=== PATIENT | female | born 1995 | race African-American/Black ===

== ENCOUNTER 2022-04-20 16:00 | Emergency (ER) | payer OTHER ==
--- OUTSIDE RECORDS SUMMARY | 2022-04-20 16:44 | XMS REPORT | Continuity of Care Document ---
:1995 Author Organization [facility] t Address [address] [place] [address] Care Team Providers Name Role Phone ARCELIA Attending Clinician Unavailable Frantz Hardy Attending Clinician [phone] LORELEI ALFORD Attending Clinician Unavailable ARCELIA Admitting Clinician Unavailable Payers Payer Name Policy Type Policy Number Effective Date Expiration Date S ource [facility] [id number] 2019 2021 00[place]00[place]00 [place] 00[place]00 [facility] - [id number] 2020 OUT OF STATE 00:00:00 Problems Condition Condition Condition Status Onset Resolution Last Treating Co mments Source Name Details Category Date Date Treatment Clinician Date Acne Acne Problem Active [place] 06-20 [facility] 00:00: [facility] Allergies, Adverse Reactions, Alerts Allergy Allergy Status Severity Reaction(s) Onset Inactive Treating Comm ents Source Name Type Date Date Clinician NO KNOWN Drug Active [facility] ALLERGIE Class ity of [facility] Social History Smoking Status Start Date Stop Date Source Never Smoker [facility] Medications Ordered Filled Start Stop Current Ordering Indication Dosage Frequency Signature Comments Components Source Medication Medication Date Date Medication? Clinician (SIG) Name Name Aczone 7.5 Aczone 7.5 No Aczone 7.5 [place] % topical % topical % topical Communi gel with gel with gel with ty pump [facility] ondansetron ondansetron No ondansetro [place] HCl 4 mg HCl 4 mg n HCl 4 mg C ommuni tablet 1-2 tablet 1-2 tablet 1-2 ty tablets by tablets by tablets by [facility] mouth every mouth every mouth l 8 hours as 8 hours as every 8 Clinics needed for needed for hours as nausea/vomi nausea/vomi needed for ting ting nausea/vom iting spironolact spironolact No spironolac [place] one 100 mg one 100 mg tone 100 Communi tablet 1 PO tablet 1 PO mg tablet ty qd qd 1 PO qd [facility] Aczone 7.5 Aczone 7.5 No Aczone 7.5 [place] % topical % topical % topical Communi gel with gel with gel with ty pump pump pump [facility] butalbital- butalbital- No 1 Q8H butalbital [place] acetaminoph acetaminoph -acetamino Communi en-caffeine en-caffeine phen-caffe ty 50 mg-325 50 mg-325 ine 50 [facility] mg-40 mg mg-40 mg mg-325 l tablet Take tablet Take mg-40 mg Clinics 1 tablet 1 tablet tablet every 8 every 8 Take 1 hours by hours by tablet oral route. oral route. every 8 hours by oral route. diphenoxyla diphenoxyla No diphenoxyl [place] te-atropine te-atropine ate-atropi Communi 2.5 2.5 ne 2.5 ty mg-0.025 mg mg-0.025 mg [facility] or tablet 1 or mg tablet l 2 tabs 2 tabs 1 or 2 Clinics every 6 every 6 tabs every hours as hours as 6 hours as needed for needed for needed for diarrhea diarrhea diarrhea Nicaprin Nicaprin No 1 BID Nicaprin Swe krysta 250 mg-500 250 mg-500 250 mg-500 Communi mcg-4.5 mcg-4.5 mcg-4.5 ty mg-1.4 mg mg-1.4 mg mg-1.4 mg [facility] tablet Take tablet Take tablet l 1 tablet 1 tablet Take 1 Clini cs twice a day twice a day tablet by oral by oral twice a route. route. day by oral route. Vital Signs Vital Name Observation Time Observation Value Comments Source BP Diastolic 2021-01-09 00:00:00 74 mm[Hg] [facility] s Height 2021-01-09 00:00:00 59 [in_i] [facility] s BMI (Body Mass 2021-01-09 00:00:00 26.5 kg/m2 [facility] s BP Systolic 2021-01-09 00:00:00 118 mm[Hg] [facility] s Body Weight 2021-01-09 00:00:00 2096 [oz_av] [facility] s BP Diastolic 2020-06-25 00:00:00 80 mm[Hg] [facility] s Height 2020-06-25 00:00:00 59 [in_i] [facility] s BMI (Body Mass 2020-06-25 00:00:00 26.9 kg/m2 [facility] s BP Systolic 2020-06-25 00:00:00 120 mm[Hg] [facility] s Body Weight 2020-06-25 00:00:00 2128 [oz_av] [facility] s BP Diastolic 2020-06-20 00:00:00 72 mm[Hg] [facility] s Height 2020-06-20 00:00:00 59 [in_i] [facility] s BMI (Body Mass 2020-06-20 00:00:00 26.9 kg/m2 [facility] s BP Systolic 2020-06-20 00:00:00 102 mm[Hg] [facility] s Body Weight 2020-06-20 00:00:00 2128 [oz_av] [facility] s Procedures Procedure Date / Time Performed Performing Clinician Sourc e XR, abdomen 2020-06-20 00:00:00 [facility] Extraction of [place] [facility] Plan of Care Planned Activity Planned Date Details Comments Source Diagnostic Test 2020-06-20 rapid SARS CoV 2 [facility]00 QL [place], respiratory Hospital Clinics specimen [code = rapid SARS CoV 2 Ag, QL [place], respiratory specimen] Diagnostic Test 2020-06-20 rapid flu (A+B) [facility] = rapid flu (A+B)] Hospital Clinics Diagnostic Test 2020-06-20 CMP, serum or plasma [facility] Pending 00:00:00 [code = CMP, serum or Hospit [facility] plasma] Diagnostic Test 2020-06-20 CBC w/ auto diff [facility] ommunity Pending 00:00:00 [code = CBC w/ auto Hospital Clinics diff] Diagnostic Test 2020-06-20 urinalysis, dipstick [facility] Pending 00:00:00 [code = urinalysis, [facility] Clinics dipstick] Encounters Start End Encounter Admission Attending Care Care Encounter Source Date/Time Date/Time Type Type Clinicians Facility Department ID 2021-01-09 2021-01-09 Outpatient ARCELIA [facility] 1005 [place] 06:14:00 06:14:00 [id number] [facility] 2021-01-09 2021-01-09 Outpatient Sammie [facility] [id number] 00:00:00 00:00:00 [id number] [place] [id number] 2021-01-09 2021-01-09 Frantz [facility] [place] 00:[place]:00 00:00:00 [facility] DO: [address] [facility] Hospit a [place], [facility] [address], HOSPITAL Clinic s [place], [place] CL[place], [address] SAMMIE , Ph. [phone] 2020-11-11 2020-11-11 Outpatient Azar ALFORD [facility] [id number] Univers 16:10:00 16:10:[address] [facility] 2020-10-21 2020-10-21 Outpatient [facility] [id number] [facility] 16:20:00 16:20:00 [facility] 2020-09-19 2020-09-19 Outpatient [facility] [id number] [facility] 16:10:00 16:10:00 [facility] 2020-09-03 2020-09-03 Outpatient ERICKSON_R [facility] 1005 [place] 03:58:00 03:58:00 [id number] Commun i ty Hospita [facility] Clinics 2020-07-01 2020-07-01 Outpatient ERICKSON_R [facility] 1005 [place] 11:44:00 11:44:00 0201 Commun i ty Hospita [facility] Clinics 2020-06-25 2020-06-25 Outpatient ERICKSON_R [facility] 1005 [place] 05:47:00 05:47:00 0126 Commun i ty Hospita l Clinics 2020-06-25 2020-06-25 Outpatient Hardy, [facility] [id number] 00:00:00 00:00:00 Frantz [id number] Abdulaziz [id number] 2020-06-25 2020-06-25 Frantz [facility] [place] 00:00:00 00:00:00 [facility] - ty DO: [address] a [facility] [address], HOSPITAL Clinic s [place], [facility], [address] SAMMIE , Ph. 2020-06-24 2020-06-24 Outpatient ERICKSON_R [facility] 1005 [place] 05:16:00 05:16:00 012 Commun i ty Hospita l Clinics 2020-06-20 2020-06-20 Outpatient ERICKSON_R [facility] 1005 [place] 05:57:00 05:57:00 012 Commun i ty Hospita l Clinics 2020-06-20 2020-06-20 Outpatient Hardy, [facility] [id number] 00:00:00 00:00:00 Frantz [id number] Abdulaziz [id number] 2020-06-20 2020-06-20 Frantz [facility] [place] 00:00:00 00:00:00 [facility] - ty DO: [address] [facility] [address], H[place]PITAL [place], [address] SAMMIE , Ph. Results Test Description Test Time Test Comments Results Result Comments Source Urinalysis macro (dipstick) panel - Urine 2020-06-20 15:47:0 0 Test Item Value Reference Range Interpretation Comme nts Leukocytes (test code = Leukocytes) Negative Nitrite (test code = Nitrite) negative Urobilinogen (test code = Urobilinogen) .2 Protein (test code = Protein) 30 pH (test code = pH) 8.0 Blood (test code = Blood) Negative Specific Seminole (test code = Specific Seminole) 1.005 Ketone (test code = Ketone) Large (160) Bilirubin (test code = Bilirubin) Small Glucose (test code = Glucose) Negative Appearance (test code = Appearance) Clear Color (test code = Color) Pale Yellow [facility] panel - Urine 2020-06-20 15:47:00 Test Item Value Reference Range Interpretation Comments Leukocytes (test code = Negative Leukocytes) Nitrite (test code = Nitrite) negative Urobilinogen (test code = .2 Urobilinogen) Protein (test code = Protein) 30 pH (test code = pH) 8.0 Blood (test code = Blood) Negative Specific Seminole (test code = 1.005 Specific [place]in[place]) Ketone (test code = Ketone) Large (160) Bilirubin (test code = Bilirubin) Small Glucose (test code = Glucose) Negative Appearance (test code = Clear Appearance) Color (test code = Color) Pale Yellow [facility] flu (A+B)2020-06-20 15:46:00 Test Item Value Reference Range Interpretation Comments FLU A (test code = FLU A) negative FLU B (test code = FLU B) negative [facility] flu (A+B)2020-06-20 15:46:00 Test Item Value Reference Range Interpretation Comments FLU A (test code = FLU A) negative FLU B (test code = FLU B) negative [facility] Ag [Presence] in Respiratory specimen by Rapid [id number] 15:02:00 Test Item Value Reference Range Interpretation Comments SARS CoV 2 (test code = SARS CoV 2) negative [facility] Ag [Presence] in Respiratory specimen by Rapid [id number] 15:02:00 Test Item Value Reference Range Interpretation Comments SARS CoV 2 (test code = SARS CoV 2) negative [facility]
--- NOTE | 2022-04-20 18:13 | RAD REPORT ---
EXAM DESCRIPTION: RAD - Shoulder Right 2 View - 04/20/2022 5:55 pm CLINICAL HISTORY: PAIN COMPARISON: No comparisons FINDINGS: Mild AC joint degenerative changes are present. No fracture, dislocation aggressive marrow lesion.
[2022-04-20] MEDS ORDERED: KETOROLAC 30 MG/ML INJ ONE (18:45)
--- NOTE | 2022-04-20 19:31 | EDPHYS ---
Physician Documentation [facility] Name: Yaz Deleon Age: 27 yrs Sex: Female : 1995 Arrival Date: 04/20/2022 Time: 16:05 Bed 10 Private MD: ED Physician Jey Polanco HPI: 04/20 17:04 This 27 yrs old Black Female presents to ER via Ambulatory with complaints of Shoulder [facility] Pain. 17:04 The patient or guardian complains of pain. Onset: The symptoms/episode began/occurred jm gradually, 1 day(s) ago. Patient complains of right shoulder pain after stretching. Denies any other injury. Denies any previous injury of the right shoulder . 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 - Social history:: Smoking status: Patient denies any tobacco usage or history of. Vital Signs: 16:48 BP 136 / 83; Pulse 66; Resp 16; Temp 97.6; Pulse Ox 100% ; Weight 61.69 kg; Height 4 iw ft. 11 in. (149.86 cm); Pain 4/10; 19:47 BP 128 / 78; Pulse 60; Resp 18; Pulse Ox 99% ; kb3 16:48 Body Mass Index 27.47 (61.69 kg, 149.86 cm) iw MDM: 17:07 Patient medically screened. [facility] 19:01 Data reviewed: vital signs, nurses notes. Counseling: I had a detailed discussion with [facility] the patient and/or guardian regarding: the historical points, exam findings, and any diagnostic results supporting the discharge/admit diagnosis, the need for outpatient follow up, to return to the emergency department if symptoms worsen or persist or if there are any questions or concerns that arise at home. 04/20 17:03 Order name: Shoulder Right (2 View) XRAY; Complete Time: 18:17 [facility] 04/20 17:12 Order name: Urine Test (obtain specimen); Complete Time: 19:51 [facility] 04/20 18:35 Order name: Sling; Complete Time: 18:54 [facility] Administered Medications: 18:54 Drug: Ketorolac 30 mg Route: IM; Site: left ventrogluteal; kb3 19:47 Follow up: Response: No adverse reaction; Pain is decreased kb3 Disposition: 04/21 07:30 Co-signature as Attending Physician, Jey Polanco MD I agree with the assessment and rt plan of care. Disposition Summary: 04/20/22 19:29 Discharge Ordered Location: Home [facility] Condition: Stable [facility] Diagnosis - Sprain of shoulder joint [facility] Followup: jmm - With: Private Physician - When: As needed - Reason: Recheck today's complaints, Continuance of care, Re-evaluation by your physician Followup: [facility] - With: Jhonny Woods MD - When: 2 - 3 days - Reason: Recheck today's complaints, Continuance of care, Re-evaluation by your physician Discharge Instructions: - Discharge Summary Sheet [facility] - Shoulder Sprain [facility] Forms: - Medication Reconciliation Form [facility] - Thank You Letter [facility] - Antibiotic Education [facility] - Prescription Opioid Use [facility] Prescriptions: - Prednisone 20 mg Oral Tablet - take 3 tablets by ORAL route once daily for 5 days; 15 tablet; Refills: 0, [facility] Product Selection Permitted - orphenadrine citrate 100 mg Oral Tablet Sustained Release - take 1 tablet by ORAL route 2 times per day As needed; 20 tablet; Refills: 0, [facility] Product Selection Permitted Signatures: Dispatcher [employer] EDBryan Ha PA PA jm Elizabeth Hill, Mamie Almanza RN, RN RN kb3 Jey Polanco MD MD rt
--- NOTE | 2022-04-20 19:31 | ER ---
Nurse's Notes [facility] [place] Name: Yaz Deleon Age: 27 yrs Sex: Female : 1995 Arrival Date: 04/20/2022 Time: 16:05 Bed 10 Private MD: Diagnosis: Sprain of shoulder joint Presentation: 04/20 16:48 Chief complaint: Patient states: right shoulder; on Wednesday i believe i stretched iw wrong and its gotten progressively worse and when i lift now i can hear a grinding noise and it's hard to rotate it anyway like to put on my jacket and reach behind.. I have been using muscle rub and ibuprofen but it's not working. Coronavirus screen: Vaccine status: Patient reports receiving the 2nd dose of the covid vaccine. Client denies travel out of the [place] in the last 14 days. Ebola Screen: Patient negative for fever greater than or equal to 101.5 degrees Fahrenheit, and additional compatible Ebola Virus Disease symptoms Patient denies exposure to infectious person. Patient denies travel to an Ebola-affected area in the 21 days before illness onset. Initial Sepsis Screen: Does the patient meet any 2 criteria? No. Patient's initial sepsis screen is negative. Does the patient have a suspected source of infection? No. Patient's initial sepsis screen is negative. Risk Assessment: Do you want to hurt yourself or someone else? Patient reports no desire to harm self or others. 16:48 Method Of Arrival: Ambulatory iw 16:48 Acuity: ALICIA 4 iw 19:49 Onset of symptoms was April 15, 2022. kb3 Triage Assessment: 16:51 General: Appears in no apparent distress. uncomfortable, slender, well groomed, well iw developed, well nourished, Behavior is calm, cooperative, appropriate for age. Pain: Complains of pain in right shoulder. 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 - Social history:: Smoking status: Patient denies any tobacco usage or history of. Screenin:30 Abuse screen: Denies threats or abuse. Denies injuries from another. Nutritional kb3 screening: No deficits noted. Tuberculosis screening: No symptoms or risk factors identified. Fall Risk None identified. Assessment: 17:30 General: Appears in no apparent distress. Behavior is calm, cooperative, Received care kb3 of pt from [facility] without distress. Pt reports she reached above her head on Wed while at work and felt a pop and now has pain in her right shoulder and right trapezius. Denies numbness, tingling to right upper extremity. Pain: Complains of pain in anterior aspect of right shoulder Pain does not radiate. Pain currently is 7 out of 10 on a pain scale. Quality of pain is described as aching, heavy, pressure, Pain began 5 days. Vital Signs: 16:48 BP 136 / 83; Pulse 66; Resp 16; Temp 97.6; Pulse Ox 100% ; Weight 61.69 kg; Height 4 iw ft. 11 in. (149.86 cm); Pain 4/10; 19:47 BP 128 / 78; Pulse 60; Resp 18; Pulse Ox 99% ; kb3 16:48 Body Mass Index 27.47 (61.69 kg, 149.86 cm) iw ED Course: 16:05 Patient arrived in ED. rg4 16:25 Bryan Colon PA is PHCP. jmm 16:25 Jey Polanco MD is Attending Physician. jmm 16:51 Triage completed. iw 16:51 Arm band placed on right wrist. iw 17:30 Patient has correct armband on for positive identification. kb3 17:30 No provider procedures requiring assistance completed. Patient did not have IV access kb3 during this emergency room visit. 17:48 Mamie Phoenix, RN is Primary Nurse. kb3 17:56 Shoulder Right (2 View) XRAY In Process Unspecified. EDMS 19:30 Jhonny Woods MD is Referral Physician. jmm Administered Medications: 18:54 Drug: Ketorolac 30 mg Route: IM; Site: left ventrogluteal; kb3 19:47 Follow up: Response: No adverse reaction; Pain is decreased kb3 Medication: 17:30 VIS not applicable for this client. kb3 Outcome: 19:29 Discharge ordered by . jmm 19:47 Discharged to home ambulatory. kb3 19:47 Condition: stable 19:47 Discharge instructions given to patient, Instructed on discharge instructions, follow up and referral plans. medication usage, Demonstrated understanding of instructions, follow-up care, medications. 19:50 Patient left the ED. kb3 Signatures: Dispatcher [employer] EDMS Bryan Colon PA PA jmm Williams, Irene, RN RN Bria Shah rg4 Mamie Phoenix, HERNAN RN kb3 Corrections: (The following items were deleted from the chart) 19:46 19:43 General: Appears in no apparent distress. Behavior is calm, cooperative, Received kb3 care of pt from [facility], [facility] without distress. Pt reports she reached above her head on Wed while at work and felt a pop and now has pain in her right shoulder and right trapezius. Denies numbness, tingling to right upper extremity. kb3 19:46 19:43 Pain: Complains of pain in anterior aspect of right shoulder Pain does not kb3 radiate. Pain currently is 7 out of 10 on a pain scale. Quality of pain is described as aching, heavy, pressure, Pain began 5 days kb3
[2022-04-20 19:55] VITALS: TEMP 97.6
[2022-04-20 19:57] VITALS: BP 128/78; O2SAT 99
== END 2022-04-20 19:50 | disposition home or self-care (01) ==
LOC: ER 16:00
DX: S43.401A Unspecified sprain of right shoulder joint, initial encounter (principal)
CPT/HCPCS: 96372; 99283

== ENCOUNTER 2023-11-22 15:12 | Emergency (ER) | payer OTHER ==
[2023-11-22 16:26] LABS: Absolute Basophils 0.1 K/uL (0-0.5); Absolute Eosinophils 0.2 K/uL (0-0.5); Absolute Lymphocytes (CBC) 2.2 K/uL (0.7-4.9); Absolute Monocytes 0.5 K/uL (0.1-1.3); Absolute Neutrophil 2.9 K/uL (1.8-8.0); Eosinophils % 3.6 % (0-4.4); Hematocrit 38.1 % (36.0-45.0); Hemoglobin 12.3 g/dL (12.0-15.0); Lymphocytes % 37.7 % (15.3-44.8); MCH 27.9 pg (27.0-35.0); MCHC 32.2 g/dL (32.0-36.0); MCV 86.7 fL (80-100); MPV 8.4 fL (7.6-11.3); Monocytes % 7.9 % (3.3-12.3); Neutrophils % 49.8 % (41.7-73.7); Platelets 371 thou/uL (152-406); RBC Red Blood Cell Count 4.39 M/uL (3.86-4.86); Red Cell Distribution Width 13.7 % (12.1-15.2)
--- NOTE | 2023-11-22 16:35 | RAD REPORT ---
EXAM DESCRIPTION: CT - Head Brain Wo Cont - 11/22/2023 4:12 pm CLINICAL HISTORY: NUMBNESS COMPARISON: none TECHNIQUE: Computed axial tomography of the head was obtained. IV contrast was not requested. All CT scans are performed using dose optimization technique as appropriate and may include automated exposure control or mA/KV adjustment according to patient size. FINDINGS: An intracranial bleed is not seen The ventricles are normal in caliber No significant hypodense areas within the brain visualized No extra-axial fluid collection is noted. Fluid within the sinuses/ mastoids is not seen IMPRESSION: No acute intracranial abnormality is seen If patient's symptoms persist MRI of the brain would be recommended
[2023-11-22 16:36] LABS: PT Prothrombin Time 11.6 SECONDS (9.4-12.5); PTT, Activated Partial Thromb 30.4 SECONDS (24.3-36.9); Protime INR 1.06
[2023-11-22 16:51] LABS: Anion Gap 8.6 mEq/L (5.0-15.0); BUN Blood Urea Nitrogen 12 mg/dL (7-18); Bicarbonate 27 mEq/L (21-32); Glomerular Filtration Rate 100 ml/min (=/>90); Glucose Level 98 mg/dL (74-106); Magnesium 2.3 mg/dL (1.6-2.4); Potassium 3.6 mEq/L (3.5-5.1); Sodium Level 138 mEq/L (136-145)
[2023-11-22 16:53] LABS: Troponin High Sensitivity < 3.0 pg/mL (<58.9)
[2023-11-22] MEDS ORDERED: NA CHLORIDE 0.9% 1,000 ML ONE (17:34)
--- NOTE | 2023-11-22 18:05 | EDPHYS ---
Physician Documentation [facility] Name: Yaz Deleon Age: 28 yrs Sex: Female : 1995 Arrival Date: 11/22/2023 Time: 15:12 Bed 6 Private MD: ED Physician Mendoza Calvo HPI: 11/21 16:21 This 28 yrs old Black Female presents to ER via Ambulatory with complaints of Headache, sb4 High Blood Pressure, Dizziness, Numbness Of Arm. 16:58 Patient states that she was at work today when she started to feel dizzy, numb on her sb4 face and arms, like she was going to pass out. 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 She denies any history of hypertension. States that she rested for a bit and came to the ED for evaluation. States that most of her symptoms have resolved but her head still hurts a little bit. States that she has been experiencing headaches on and off for the past few months. Historical: - Allergies: 15:48 No Known Allergies; ph - Immunization history:: Adult Immunizations unknown. - Infectious Disease History:: Denies. - Social history:: Smoking status: Patient denies any tobacco usage or history of. ROS: 16:58 Constitutional: Negative for fever, chills, and weight loss, sb4 16:58 Neuro: Positive for dizziness, headache, numbness, 16:58 All other systems are negative, Exam: 16:58 Constitutional: This is a well developed, well nourished patient who is awake, alert, sb4 and in no acute distress. Head/Face: Normocephalic, atraumatic. Eyes: Extra-ocular motions intact. Periorbital areas with no swelling, redness, or edema. ENT: Mucous membranes moist. Cardiovascular: Regular rate and rhythm with a normal S1 and S2. Respiratory: Lungs have equal breath sounds bilaterally, clear to auscultation and percussion. No rales, rhonchi or wheezes noted. No increased work of breathing, no retractions or nasal flaring. Abdomen/GI: Soft, non-tender, no distension. Skin: Warm, dry with normal turgor. Normal color with no rashes, no lesions, and no evidence of cellulitis. MS/ Extremity: Pulses equal, no cyanosis. Neurovascular intact. Full, normal range of motion. 16:58 Neuro: Orientation: to person, place, time \T\ situation. Mentation: is normal, Memory: is normal, Sensation: Patient reports decreased sensation on the left side of her face, Vital Signs: 15:46 BP 150 / 91; Pulse 75; Resp 18; Temp 97.8; Pulse Ox 100% on R/A; Weight 62.6 kg; Height ph 4 ft. 11 in. ; 16:32 BP 138 / 81; Pulse 68; Resp 16; Pulse Ox 99% on R/A; ko1 17:38 BP 127 / 79; Pulse 56; Resp 18; Pulse Ox 100% on R/A; ld1 18:19 BP 126 / 83; Pulse 61; Resp 18; Pulse Ox 100% on R/A; ld1 15:46 Body Mass Index 27.87 (62.60 kg, 149.86 cm) ph MDM: 15:22 Patient medically screened. sb4 18:04 Data reviewed: vital signs, nurses notes, lab test result(s), EKG, radiologic studies, sb4 and as a result, I will discharge patient. Counseling: I had a detailed discussion with the patient and/or guardian regarding the historical points, exam findings, and any diagnostic results supporting the discharge/admit diagnosis, the presence of at least one elevated blood pressure reading (>120/80) during this emergency department visit, lab results, radiology results, to return to the emergency department if symptoms worsen or persist or if there are any questions or concerns that arise at home. 11/21 15:58 Order name: Basic Metabolic Panel; Complete Time: 16:53 sb4 11/21 15:58 Order name: CBC with Diff; Complete Time: 16:29 sb4 11/21 15:58 Order name: High Sensitivity Troponin; Complete Time: 16:53 sb4 11/21 15:58 Order name: Magnesium; Complete Time: 16:53 sb4 11/21 15:58 Order name: Protime (+inr); Complete Time: 16:37 sb4 11/21 15:58 Order name: Ptt, Activated; Complete Time: 16:37 sb4 11/21 15:58 Order name: Test, Serum; Complete Time: 17:01 sb4 11/21 15:58 Order name: CT Head Brain wo Cont; Complete Time: 16:36 sb4 11/21 15:58 Order name: Accucheck; Complete Time: 16:56 sb4 11/21 15:58 Order name: Cardiac monitoring; Complete Time: 16:08 sb4 11/21 15:58 Order name: EKG - Nurse/Tech; Complete Time: 16:32 sb4 11/21 15:58 Order name: IV Saline Lock; Complete Time: 16:24 sb4 11/21 15:58 Order name: Labs collected and sent; Complete Time: 16:24 sb4 11/21 15:58 Order name: O2 Per Protocol; Complete Time: 16:04 sb4 11/21 15:58 Order name: O2 Sat Monitoring; Complete Time: 16:04 sb4 EC:40 Rate is 63 beats/min. Rhythm is regular, Normal Sinus Rhythm. VT interval is normal at sb4 160 msec. QRS interval is normal at 92 msec. QT interval is normal at 432 msec. No Q waves. T waves are Normal. No ST changes noted. Clinical impression: Normal ECG. Interpreted by me. Reviewed by me. Administered Medications: 17:38 Drug: NS 0.9% IV 1000 ml IV at 1 bolus Per protocol; 1000 mL bolus Route: IV; Rate: 1 ld1 bolus; Site: right antecubital; Disposition: 20:44 Co-signature as Attending Physician, Mendoza Calvo MD I reviewed the patient's care rn provided by the Advanced Practice Provider and agree with the diagnosis and treatment plan. Disposition Summary: 11/22/23 18:05 Discharge Ordered Notes: Location: Home sb4 Problem: new sb4 Symptoms: have improved sb4 Condition: Stable sb4 Diagnosis - Elevated blood-pressure reading, without diagnosis of hypertension sb4 Followup: sb4 - With: Alexandro Payne, DO - When: As needed - Reason: Recheck today's complaints, Re-evaluation by your physician Followup: sb4 - With: Loc Lazaro, DO - When: As needed - Reason: Recheck today's complaints, Re-evaluation by your physician Followup: sb4 - With: Renay Kang DO - When: As needed - Reason: Recheck today's complaints, Re-evaluation by your physician Discharge Instructions: - Discharge Summary Sheet sb4 - How to Take Your Blood Pressure, Nuel-ts-Swud sb4 - Form - Blood Pressure Record Sheet sb4 Forms: - Patient Portal Instructions sb4 - Leadership Thank You Letter sb4 Signatures: Dispatcher [employer] EDMS Mendoza Calvo MD MD rn Lachelle Harding RN RN ph Yaneli Jaquez, HERNAN RN ld1 Dinah Vallejo, PAMarya PAMarya sb4 Corrections: (The following items were deleted from the chart) 15:58 15:58 BASIC METABOLIC PANEL+C.LAB.BRZ ordered. EDMS EDMS 15:58 15:58 CBC+H.LAB.BRZ ordered. EDMS EDMS 15:58 15:58 Troponin High Sensitivity+C.LAB.BRZ ordered. EDMS EDMS 15:58 15:58 MAGNESIUM+C.LAB.BRZ ordered. EDMS EDMS 15:58 15:58 PROTIME (+INR)+COAG.LAB.BRZ ordered. EDMS EDMS 15:58 15:58 PTT, ACTIVATED+COAG.LAB.BRZ ordered. EDMS EDMS 15:58 15:58 TEST, SERUM+SC.LAB.BRZ ordered. EDMS EDMS 15:59 15:59 Head Brain Wo Cont+CT.RAD.BRZ ordered. EDMS EDMS
--- NOTE | 2023-11-22 18:05 | ER ---
Nurse's Notes [facility] Name: Yaz Deleon Age: 28 yrs Sex: Female : 1995 Arrival Date: 11/22/2023 Time: 15:12 Bed 6 Private MD: Diagnosis: Elevated blood-pressure reading, without diagnosis of hypertension Presentation: 11/21 15:46 Chief complaint: Patient states: Was at work today, began to feel dizzy, L sided ph headache and numbness/tingling to L arm, checked BP 164/79, states that symptoms have improved, only c/o generalized weakness at this time. Coronavirus screen: Vaccine status: Patient reports receiving the 2nd dose of the covid vaccine. Ebola Screen: No symptoms or risks identified at this time. Initial Sepsis Screen: Does the patient meet any 2 criteria? No. Patient's initial sepsis screen is negative. Does the patient have a suspected source of infection? No. Patient's initial sepsis screen is negative. Risk Assessment: Do you want to hurt yourself or someone else? Patient reports no desire to harm self or others. Onset of symptoms was November 22, 2023. 15:46 Method Of Arrival: Ambulatory ph 15:46 Acuity: ALICIA 3 ph Triage Assessment: 18:20 Headache History: The patient has had previous headaches and this one is similar to ld1 previous episodes. General: Appears in no apparent distress. comfortable, Behavior is calm, cooperative, appropriate for age. Pain: Pain currently is 6 out of 10 on a pain scale. Pain began suddenly, Also complains of no other associated symptoms. Historical: - Allergies: 15:48 No Known Allergies; ph - Immunization history:: Adult Immunizations unknown. - Infectious Disease History:: Denies. - Social history:: Smoking status: Patient denies any tobacco usage or history of. Screenin:32 [facility] ED Fall Risk Assessment (Adult) History of falling in the last 3 months, ko1 including since admission No falls in past 3 months (0 pts) Confusion or Disorientation No (0 pts) Intoxicated or Sedated No (0 pts) Impaired Gait No (0 pts) Mobility Assist Device Used No (0 pt) Altered Elimination No (0 pt) Score/Fall Risk Level 0 - 2 = Low Risk Oriented to surroundings, Maintained a safe environment, Educated pt \T\ family on fall prevention, incl call for assistance when getting out of bed, Assessed \T\ reinforced patient's understanding of fall precautions, Provided non-skid footwear, Hourly rounding (assess needs \T\ fall precautionary measures) done. Abuse screen: Denies threats or abuse. Denies injuries from another. Nutritional screening: No deficits noted. Tuberculosis screening: No symptoms or risk factors identified. Assessment: 16:32 General: Appears in no apparent distress. Behavior is cooperative, appropriate for age, ko1 anxious. Pain: Complains of pain in top of head and forehead. Neuro: Reports dizziness, numbness in left arm. Cardiovascular: No deficits noted. Respiratory: No deficits noted. GI: No deficits noted. : No deficits noted. EENT: No deficits noted. Derm: No deficits noted. Musculoskeletal: No deficits noted. 18:19 Reassessment: Patient appears in no apparent distress at this time. No changes from ld1 previously documented assessment. Patient and/or family updated on plan of care and expected duration. Pain level reassessed. Patient is alert, oriented x 3, equal unlabored respirations, skin warm/dry/pink. Vital Signs: 15:46 BP 150 / 91; Pulse 75; Resp 18; Temp 97.8; Pulse Ox 100% on R/A; Weight 62.6 kg; Height ph 4 ft. 11 in. ; 16:32 BP 138 / 81; Pulse 68; Resp 16; Pulse Ox 99% on R/A; ko1 17:38 BP 127 / 79; Pulse 56; Resp 18; Pulse Ox 100% on R/A; ld1 18:19 BP 126 / 83; Pulse 61; Resp 18; Pulse Ox 100% on R/A; ld1 15:46 Body Mass Index 27.87 (62.60 kg, 149.86 cm) ph ED Course: 15:14 Patient arrived in ED. mr 15:22 Dinah Vallejo PA-C is PHCP. sb4 15:22 Mendoza Calvo MD is Attending Physician. sb4 15:48 Triage completed. ph 15:48 Arm band placed on Patient placed in an exam room. ph 16:13 Susan Lawson, HERNAN is Primary Nurse. ko1 16:14 CT Head Brain wo Cont In Process Unspecified. EDMS 16:23 Initial lab(s) drawn, by me, sent to lab. Inserted saline lock: 22 gauge in right me1 antecubital area, using aseptic technique. 16:23 Test, Serum Sent. me1 16:24 Basic Metabolic Panel Sent. me1 16:24 CBC with Diff Sent. me1 16:24 High Sensitivity Troponin Sent. me1 16:24 Magnesium Sent. me1 16:24 Protime (+inr) Sent. me1 16:24 Ptt, Activated Sent. me1 16:32 Patient has correct armband on for positive identification. Placed in gown. Bed in low ko1 position. Call light in reach. Side rails up X2. Provided Education on: labs, ekg, call light. Client placed on continuous cardiac and pulse oximetry monitoring. NIBP monitoring applied. groundwater monitoring technician on. Door closed. Noise minimized. Lights dimmed. Warm blanket given. Pillow given. 16:32 No provider procedures requiring assistance completed. ko1 16:35 EKG done, by ED staff, reviewed by Dinah Vallejo PA-C. ko1 18:04 Alexandro Payne DO is Referral Physician. sb4 18:04 Loc Lazaro DO is Referral Physician. sb4 18:05 Renay Kang DO is Referral Physician. sb4 18:07 IV discontinued, intact, bleeding controlled, No redness/swelling at site. Pressure ko1 dressing applied. Administered Medications: 17:38 Drug: NS 0.9% IV 1000 ml IV at 1 bolus Per protocol; 1000 mL bolus Route: IV; Rate: 1 ld1 bolus; Site: right antecubital; Medication: 16:32 VIS not applicable for this client. ko1 Outcome: 18:05 Discharge ordered by . sb4 18:20 Discharged to home ambulatory, ld1 18:20 Condition: stable 18:20 Discharge instructions given to patient, Instructed on discharge instructions, follow up and referral plans. Demonstrated understanding of instructions, follow-up care, 18:20 Patient left the ED. ld1 Signatures: Dispatcher [employer] EDNC RegaladoDinora, Sotero Bey mr Lachelle Harding, RN RN Yaneli Jaquez RN RN ld1 Susan Lawson RN RN Dinah Martinez PA-C PA-C sb4 Erlinda Lambert RN RN il1
[2023-11-23 00:56] VITALS: BP 126/83; TEMP 97.8; O2SAT 100
== END 2023-11-22 18:20 | disposition home or self-care (01) ==
LOC: ER 15:12
DX: R03.0 Elevated blood-pressure reading, without diagnosis of hypertension (principal); R51.9 Headache, unspecified
CPT/HCPCS: 85025; 80048; 36415; 83735; 84703; 85610; 85730; 84484; 70450; J7030; 93005